=== PATIENT | male | born 1965 | race Caucasian/White ===

== ENCOUNTER 2023-03-03 11:14 | Outpatient (CLI) | payer BC, SELFPAY ==
--- NOTE | ~2023-03-03 | XR_ITS ---
EXAM: XR elbow RT min 3V DATE: 03/03/2023 11:36 HISTORY: M25.521 - Pain in right elbow, injury . COMPARISON: None available. FINDINGS: Normal mineralization. No fracture or dislocation. No lytic or blastic lesion. Joint space s are maintained. Minimal medial enthesopathy. No erosion or periosteal change. Soft tissues within n ormal limits. IMPRESSION: No acute osseous finding in the right elbow. Reviewed, dictated and finalized at location K.
== END 2023-03-03 11:15 | disposition home or self-care (01) ==
PROVIDERS: PCP Family Medicine; Visit Provider Physician Assistant
DX: M25.521 Pain in right elbow (principal)
CPT/HCPCS: 73080

== ENCOUNTER → 2023-05-24 15:41 | Outpatient (CLI) | payer BC, SELFPAY ==
--- NOTE | ~2023-05-24 | CT_ITS ---
EXAMINATION: CT lung screening DATE: 05/24/2023 15:54 INDICATION: Personal history nicotine dependence, current smoker with 30 pack year history TECHNIQUE: Computed tomography (CT) of the chest was performed without intravenous contrast. The dose -length product (DLP) was 205.02 mGy-cm. Automated exposure control and iterative reconstruction tech [employer] were employed. COMPARISON: None FINDINGS: There is mild emphysema. The lungs are free of acute opacities. No pleural effusion or pneu mothorax. No suspicious pulmonary nodules are identified. No pathologically enlarged thoracic lymph n odes are identified. The heart size is normal. Calcified coronary artery atherosclerosis is noted. Th e liver is diffusely low in attenuation when compared with the spleen, consistent with hepatic steato sis. There is mild thoracic spondylosis. IMPRESSION: 1. Lung-RADS category 1: Negative. Continue annual screening with noncontrast low-dose chest CT in 12 months. Reviewed, dictated and finalized at location B. IMPRESSION: 1. Lung-RADS category 1: Negative. Continue annual screening with noncontrast l ow-dose chest CT in 12 months.
== END ==
PROVIDERS: PCP Physician Assistant; Visit Provider Physician Assistant
DX: Z12.2 Encounter for screening for malignant neoplasm of respiratory organs (principal); F17.210 Nicotine dependence, cigarettes, uncomplicated
CPT/HCPCS: 71271